=== PATIENT | female | born 2000 | race African-American/Black ===

== ENCOUNTER 2021-05-01 18:40 | Emergency (ER) | payer MEDICAID ==
[~2021-05-01] VITALS: Ht 167.6 cm; Wt 59.0 kg
[2021-05-01] MEDS ORDERED: ACETAMINOPHEN 325MG TABLET PO STA (19:26)
[2021-05-01 19:41] LABS: CLARITY URINE CLEAR (CLEAR); COLOR URINE YELLOW (YELLOW); KETONES URINE TRACE (NEGATIVE); LEUKOCYTE ESTERASE URINE TRACE (NEGATIVE); NITRITE URINE NEGATIVE (NEGATIVE); OCCULT BLOOD URINE 3+ (NEGATIVE); PROTEIN URINE 2+ (NEGATIVE); SPECIFIC GRAVITY URINE 1.034 (1.005-1.030)
[2021-05-01 19:47] LABS: BASOPHILS % 0.6 % (0.0-2.0); HEMATOCRIT. 37.4 % (36.0-48.0); HEMOGLOBIN. 12.1 g/dL (12.0-16.0); LYMPHOCYTES % 29.6 % (20.0-50.0); MEAN CORPUSCULAR HEMOGLOBIN 26.7 pg (28.0-32.0); MEAN CORPUSCULAR VOLUME 82.3 fL (81.0-99.0); MEAN PLATELET VOLUME 7.6 fl (7.4-10.4); MONOCYTES % 9.1 % (2.0-8.0); NEUTROPHILS % 58.7 % (40.0-76.0); PLATELET 333 x1000/uL (130-400); RED BLOOD CELL COUNT 4.55 mill/uL (4.2-5.4)
[2021-05-01 19:54] LABS: CHLORIDE 110 mEq/L (98-107)
[2021-05-01 20:04] LABS: B-HCG QUANTITATIVE 175 mIU/mL (<3)
[2021-05-01] MEDS ORDERED: NITR-87 MT (21:01)
[2021-05-01 22:34] VITALS: BP 100/82
== END 2021-05-01 22:36 | disposition home or self-care (01) ==
LOC: ER 18:40
DX: O20.0 Threatened abortion (principal); O23.41 Unspecified infection of urinary tract in pregnancy, first trimester; N39.0 Urinary tract infection, site not specified; Z3A.01 Less than 8 weeks gestation of pregnancy
CPT/HCPCS: 36415; 76801; 80053; 81003; 81025; 82962; 84702; 85025; 86850; 86900; 99284